=== PATIENT | male | born 1985 | race Caucasian/White ===

== ENCOUNTER 2024-09-18 15:23 | Emergency (ER) | payer BC, SELFPAY ==
[2024-09-18 15:25] VITALS: BP 135/79
[2024-09-18 15:35] LABS: % Basophils 0.9 % (0-2); % Eosinophils 3.8 % (0-6); % Immature Granulocytes 0.3 % (0-0.5); % Lymphocytes 43.7 % (20.5-51.1); % Monocytes 9.8 % (1.7-9.3); % Neutrophils 41.5 % (42.2-75.2); Absolute Basophils 0.1 10^3/uL (0-0.2); Absolute Eosinophils 0.3 10^3/uL (0-0.7); Absolute Lymphocytes 2.9 10^3/uL (1.2-3.4); Absolute Monocytes 0.7 10^3/uL (0.1-0.6); Absolute Neutrophils 2.8 10^3/uL (1.4-6.5); Hematocrit 42.5 % (39.0-52.0); Hemoglobin 15.5 g/dL (13.0-18.0); Mean Corp Hgb Conc. 36.5 g/dL (33.0-37.0); Mean Corpuscular Hgb 31.4 pg (27.0-31.0); Nucleated Red Blood Cells % 0 % (-); Platelet Count 205 10^3/uL (130-400); Red Blood Cell Count 4.94 10^6/uL (4.70-6.10); Red Cell Dist. Width 12.3 % (11.5-14.5); White Blood Cell Count 6.6 10^3/uL (4.8-10.8)
--- NOTE | 2024-09-18 15:47 | ED.GENMED ---
History of Present Illness
General
Chief Complaint: Fainting/Passed Out
Source: patient
Exam Limitations: none
Time Seen by Provider: 09/18/24 15:31
History of Present Illness
History of Present Illness:
Patient was crouched in a shower tile in the shower. He was in an awkward position for prolonged period upon standing he felt lightheaded and passed out briefly. He hit his head against the tile wall which is a very rough style. Currently just
complaining of feeling tired with a skin tear loss to his right eyebrow and some lip swelling. Denies neck pain chest pain shortness of breath history of syncope abdominal pain or other complaints.
Past History
Past History
ED Past Medical History: None
Review of Systems
Review of Systems
All Other Systems: Not applicable
Constitutional: Denies fever
Respiratory: Denies trouble breathing
Cardiac: Denies chest pain or palpitations
Phy Exam
Physical Exam
Physical Exam:
TRAUMA EXAM:
VITAL SIGNS: Vital signs reviewed, cooperative
DISTRESS: No active disease
EYES: Pupils reactive, no orbital trauma
NOSE: No deformity or epistaxis
FACE AND SCALP: No scalp trauma, external canals no blood. Approximately 2 cm horizontal skin loss to the right lateral eyebrow. Abrasion to the left upper lip. Teeth stable.
NECK: Supple nontender
BACK: Back nontender, pelvis stable to compression
RESPIRATORY: No distress, breath sounds normal, no tender chest wall
CARDIAC: No murmur, pulses equal and strong
ABDOMEN: Soft nontender bowel sounds normal
SKIN: Skin intact no bleeding, color normal
EXTREMITIES: Nontender
NEUROLOGICAL: Alert, oriented, no motor deficits
PSYCH: Mood affect normal
Course
Orders/Labs/Results
Orders:
Orders
09/18/24 15:28
Electrocardiogram (*1) Urgent
Reason for Study: Syncope
09/18/24 15:29
EKG- Treatment ONCE
Comprehensive Metabolic Panel Urgent
Troponin I Urgent
09/18/24 15:30
Complete Blood Count/With Diff Routine
09/18/24 15:41
Tetanus/Diphth/Acelpertussis [Adacel] 0.5 ml IM .ONCE ONE
09/18/24 15:42
CT Facial Bones W/o Iv Contras Urgent
Comment:
Reason For Exam: Trauma
CT Head W/o Iv Contrast Urgent
Comment:
Reason For Exam: Trauma
Cardiac Monitoring- Treatment ONCE
09/18/24 16:58
Potassium Chloride 10% Elixir [KCl Elixir] 40 meq PO NOW STA
Abnormal Lab Results
09/18/24 09/18/24
15:29 15:30
MCH 31.4 H pg
(27.0-31.0)
Absolute Monos (auto) 0.7 H 10^3/uL
(0.1-0.6)
Neutrophils % 41.5 L %
(42.2-75.2)
Monocytes % 9.8 H %
(1.7-9.3)
Potassium 3.3 L mmol/L
(3.5-5.1)
Glucose 111 H mg/dl
(70-99)
Total Bilirubin 2.2 H mg/dl
(0.2-1.3)
09/18/24 15:30
09/18/24 15:29
Vital Signs
Initial and Last Documented VS:
Initial Vital Signs
Temp Pulse Resp BP Pulse Ox
98.1 F 98 20 135/79 99
09/18/24 15:25 09/18/24 15:25 09/18/24 15:25 09/18/24 15:25 09/18/24 15:25
Last Documented Vital Signs
Temp Pulse Resp BP Pulse Ox
98.1 F 98 20 135/79 99
09/18/24 15:25 09/18/24 15:25 09/18/24 15:25 09/18/24 15:25 09/18/24 15:25
Procedures
Laceration Closure
Right Upper Eye brow:
Status of Wound: clean
Size of Wound in cm: 2
Description of Wound Edges: ragged
Preparation: cleaned with saline and cleaned with Betadine
Anesthesia: 1% Lidocaine with epi
Revision/Debridement: minor revision
Wound exploration: explored to base- no FB
Type of Closure: single layer closure
Skin Closure Material: 5-0 nylon
Number of sutures: 3
MDM/Problems Addressed
Differential Diagnosis Includes:
Patient's syncopal episode likely related to his awkward position in the shower with sudden standing. No history of syncope no family history of sudden or arrhythmias. Positive prodromal symptoms with standing. No resulting chest pain or
shortness of breath. Will monitor fluids routine labs head and facial CT based on the trauma laceration repair.
*Pulse Oximetry
Patient hypoxic: no
*Pageant Director Interpretation
Rate: normal
Interpretation: normal
Heart Rate: 92
Rhythm: sinus
*Critical Care Note
Total Time (30-74mins, 75-104mins- exclusive of procedures): Not Applicable
Update Note
Update Note:
Patient is doing well. Heart rate in the high 80s. Medically stable. No chest pain no shortness of breath no begum factor for PE. No risk factor for cardiac arrhythmia and has had no rhythm issues here. Stable for discharge
ED Attending Note
-
Portions of this chart may have been created with voice recognition software.� Occasional wrong word or��sound alike� substitutions may have occurred due to the inherent limitations of voice recognition software.
Discharge Plan
Departure
Patient Disposition: Home (Routine Discharge)
Date of Disposition: 09/18/24
Time of Disposition: 18:17
Patient with high blood pressure during this ER visit?: Yes
Discharge Problem:
Syncopal episode, Eyebrow laceration, Eyelid abrasion, Lip contusion, Mild hypokalemia
Instructions: Hypokalemia, Syncope (Fainting) (DC), Minor Head Injury, Adult ED, Stitches - ED discharge instructions
Referrals:
Karishma Coto CRNP [Family Provider] - Follow up in 2-3 days
Activity Restrictions/Additional Instructions:
Suture removal in about a week
Interventions
Interventions:
*General Assessment Last Done: 09/18/24 15:25
*ED- Fall Risk Assessment Last Done: 09/18/24 15:31
ED- Cardiac Assessment Last Done: 09/18/24 15:31
ED- Neurological Assessment Last Done: 09/18/24 15:31
Discharge Date and Time
Print Language: URDU
[2024-09-18 15:49] LABS: ALT (SGPT) 24 U/L (0-50); AST (SGOT) 25 U/L (17-59); Albumin 4.5 g/dl (3.5-5.0); Alkaline Phosphatase 53 U/L (38-126); Blood Urea Nitrogen 12 mg/dl (9-20); Calcium 9.8 mg/dl (8.4-10.2); Carbon Dioxide 27 mmol/L (22-30); Chloride 100 mmol/L (98-107); Glucose 111 mg/dl (70-99); Potassium 3.3 mmol/L (3.5-5.1); Sodium 135 mmol/L (135-145); Total Bilirubin 2.2 mg/dl (0.2-1.3); eGFR > 60.00
[2024-09-18 16:00] VITALS: BP 138/82
[2024-09-18 16:01] LABS: Troponin I < 0.012 ng/ml
[2024-09-18] MEDS: ADACEL 0.5 ML IM (16:23)
[2024-09-18 17:00] VITALS: BP 160/76
[2024-09-18] MEDS: KCL ELIXIR 40 MEQ PO (17:04)
[2024-09-18 18:00] VITALS: BP 138/86
== END 2024-09-18 18:40 | disposition home or self-care (01) ==
LOC: EMR 15:23
PROVIDERS: Emergency Medicine; EMERGENCY PHYSICIAN Emergency Medicine; FAMILY PHYSICIAN Nurse Practitioner Family
DX: R55 Syncope and collapse (principal); S01.111A Laceration without foreign body of right eyelid and periocular area, initial encounter; S00.531A Contusion of lip, initial encounter; S00.511A Abrasion of lip, initial encounter; S00.211A Abrasion of right eyelid and periocular area, initial encounter; R53.83 Other fatigue; W22.09XA Striking against other stationary object, initial encounter; E87.6 Hypokalemia; R03.0 Elevated blood-pressure reading, without diagnosis of hypertension; Z23 Encounter for immunization
CPT/HCPCS: 99284; 12011; 90471; 70450; 70486; 80053; 84484; 85025; 90715; 93005